=== PATIENT | female | born 1985 | race Caucasian/White ===

== ENCOUNTER → 2022-08-05 11:59 | Outpatient (CLI) | payer OTHER, MEDICAID, SELFPAY ==
[2022-08-05 12:42] LABS: Add Manual Diff / Slide Review NO; Basophils Absolute Auto 0 /uL (0-100); Basophils Percent Auto 0.3 % (0-2); Eosinophils Absolute Auto 100 /uL (0-450); Eosinophils Percent Auto 1.3 % (2-4); Hematocrit 37.8 % (36-46); Hemoglobin 12.5 g/dL (12.0-16.0); Lymphocytes Absolute Auto 2500 /uL (1100-4500); Lymphocytes Percent Auto 30.5 % (25-40); Mean Corpuscular HGB Conc 33.1 % (30-36); Mean Corpuscular Volume 84.4 fL (80-100); Monocytes Absolute Auto 400 /uL (0-900); Monocytes Percent Auto 5.4 % (3-14); Neutrophils Absolute Auto 5000 /uL (1500-7000); Neutrophils Percent Auto 62.5 % (50-75); Platelet Count 300 X10^3/uL (150-400); Red Blood Cell Count 4.47 X10^6/uL (4.0-5.2); Red Cell Distribution Width 13.3 % (11.6-14.8)
[2022-08-05 12:53] LABS: Hemoglobin A1C% w Est Avg Glu 5.2 % (4.0-6.0)
[2022-08-05 13:37] LABS: Alanine Aminotransferase 28 IU/L (<35); Alkaline Phosphatase 97 U/L (38-126); Aspartate Aminotransferase 35 IU/L (14-36); BUN Creatinine Ratio 10.9 (6-22); Bilirubin Total 0.4 mg/dL (0.2-1.3); Blood Urea Nitrogen 10 mg/dL (7-17); Calcium 9.1 mg/dL (8.4-10.2); Carbon Dioxide 25 mmol/L (22-32); Chloride 104 mmol/L (98-107); Cholesterol 181 mg/dL (140-199); Estimated Glomerular Filt Rate > 60 mL/min (>60); Glucose 102 mg/dL (70-100); HDL Cholesterol 36 mg/dL (40-60); HEMOLYSIS < 15 (0-50); LDL Cholesterol Calculated 100 mg/dL (<100); Sodium 139 mmol/L (137-145); Total Protein 7.4 g/dL (6.3-8.2); Triglycerides 225 mg/dL (35-150)
[2022-08-05 14:03] LABS: TSH w/ Reflex to FT4 1.34 uIU/mL (0.47-4.68)
[2022-08-05 15:21] LABS: Vitamin D 25 Hydroxy (D3) 48.2 ng/mL (30.0-100.0)
[2022-08-05 16:42] LABS: Albumin 3.8 g/dL (3.5-5.0); Albumin Globulin Ratio 1.1 (1.0-2.8); Globulin 3.6 g/dL (1.7-4.1)
== END ==
PROVIDERS: PCP Family Medicine; Referring Provider Family Medicine; Visit Provider Family Medicine
DX: E66.01 Morbid (severe) obesity due to excess calories (principal); F31.9 Bipolar disorder, unspecified; R73.01 Impaired fasting glucose
CPT/HCPCS: 36415; 80053; 80061; 82306; 83036; 84443; 85025

== ENCOUNTER → 2022-11-01 14:26 | Outpatient (CLI) | payer OTHER, MEDICAID, SELFPAY ==
--- NOTE | 2022-11-14 14:55 | DIET.OUTPTC ---
Dietary Outpatient Consultation Note Consultation Date: 11/01/[address] visit to start monitoring for desired bariatric surgery. Pts insurance requires [address] visits over a 6 month period with sustained 5% weight loss to move to the next phase. Current weight: 119.7kg Weight to qualify for surgery: 113.7kg Interventions: 1. Discussed requirements to successfully complete this stage of pre-bariatric approval including missing no more than 2 of 12 visits and maintained 5% weight loss. 2. Set up recurring visits with this RD. 3. Discussed bariatric surgery options and long-term benefits/risks. f/u in 2w to start nutrition counselling and monitoring. Electronically Signed by: Marina Aguirre 11/14/22 14:55 Clinical Dietitian [address] [address]
== END ==
PROVIDERS: Absent Provider Family Medicine; Family Provider Family Medicine; PCP Family Medicine; Referring Provider Family Medicine; Visit Provider Family Medicine
DX: E66.01 Morbid (severe) obesity due to excess calories (principal); R73.01 Impaired fasting glucose; Z71.3 Dietary counseling and surveillance
CPT/HCPCS: 97802

== ENCOUNTER → 2022-11-01 15:33 | Outpatient (CLI) | payer OTHER, MEDICAID, SELFPAY | PROVIDERS: Family Provider Family Medicine; PCP Family Medicine; Referring Provider Family Medicine; Visit Provider Family Medicine | DX: Z01.818 Encounter for other preprocedural examination (principal) | CPT/HCPCS: 93005; 93010 ==

== ENCOUNTER → 2022-11-15 16:21 | Outpatient (CLI) | payer OTHER, MEDICAID, SELFPAY ==
--- NOTE | 2022-11-15 16:22 | DIET.OUTPTC ---
Dietary Outpatient Consultation Note Consultation Date: 11/15/2022 37y F attending telehealth visit for pre-bariatric visit number 2 to qualify for bariatric surgery. Pt at home office, RD in hospital office, pt agrees to video visit using [employer] nicanor. Pt is using food journal daily. Pt has met her weight loss goal but is working to maintain her weight loss. Starting Weight: 263# Goal Weight: 247# Current Weight: 239.6# When anxious often feels hungry but gets nauseous. Went on [employer] up sagle for 2 nights but felt anxious because her daughter was admitted to psychiatric treatment at [facility]. On retreat, first day just had protein drink then second day: B: fruit bowl +/- lemon mongolian yogurt L: 1/2 roast beef sandwich with orange D: 1/2 cup chicken james pasta, 1/2 piece garlic bread, salad Sn: 2 cookies Pt had a few great days when looking back at her food log. She characterizes a good day as: B: vanilla Premier Protein with banana L: 3 mini bejarano peppers with low fat cream cheese and everything bagel seasoning Sn: crostini with roasted garlic D: 1/2 lummi wrap on low carb tortilla Interventions: 1. Encouraged pt to stock up on protein drinks and to keep them in her home, car, and places she frequents (family homes). Pt can easily grab cup of ice from gas station to cool down the drink. 2. Encouraged pt to try a variety of brands to find those she enjoys. Suggested Fairlife 30g protein. F/u in 2w to continue education and monitoring for bariatric surgery. Electronically Signed by: Marina Aguirre 11/15/22 16:22 Clinical Dietitian [address] [id number]
== END ==
PROVIDERS: Family Provider Family Medicine; PCP Family Medicine; Referring Provider Family Medicine; Visit Provider Family Medicine
DX: E66.01 Morbid (severe) obesity due to excess calories (principal); R73.01 Impaired fasting glucose; Z71.3 Dietary counseling and surveillance
CPT/HCPCS: 97803

== ENCOUNTER → 2022-11-30 12:00 | Outpatient (CLI) | payer SELFPAY ==
--- NOTE | 2022-11-30 14:50 | DIET.OUTPTC ---
Dietary Outpatient Consultation Note Consultation Date: 11/30/2022 Pt in home, RD in hospital office, pt agrees to telehealth visit using [employer] nicanor. 37y F attending RD visit for help with qualifying for bariatric surgery. Pt attending 3 of 12 visits. Pt noticed 3# weight gain since last visit, has been drinking both Red Bull and SF Red Bull since that time to cope with family stress and deal with headaches. Pt purchased FairLife protein drinks and prefers them to Premier Protein. Is drinking two protein drinks daily and one meal due to ongoing stomach issue. Interventions: 1. Recc pt stop drinking Red Bull or only choose SF option to avoid sugar sweetened beverage. 2. Reinforced importance of protein intake and using protein drinks if pt not feeling like eating meal. F/u in 2w. Electronically Signed by: Marina Aguirre 11/30/22 14:50 Clinical Dietitian [address] [address]
== END ==
LOC: DIET 06-01 12:16
PROVIDERS: Family Provider Family Medicine; PCP Family Medicine; Referring Provider Family Medicine; Visit Provider Family Medicine
DX: E66.01 Morbid (severe) obesity due to excess calories (principal); Z71.3 Dietary counseling and surveillance
CPT/HCPCS: 97803

== ENCOUNTER → 2022-12-13 16:37 | Outpatient (CLI) | payer OTHER, MEDICAID, SELFPAY ==
--- NOTE | 2022-12-13 16:39 | DIET.OUTPTC ---
Dietary Outpatient Consultation Note Consultation Date: 12/13/2022 37y F attending telehealth visit for pre-bariatric visit of 12 to qualify for bariatric surgery. Pt at home office, RD in hospital office, pt agrees to video visit using [employer] nicanor. Pt is using food journal daily. Pt has met her weight loss goal but is working to maintain her weight loss. Pt stopped drinking Red Bull and was able to switch to 3-4 bottles of water. Starting Weight: 263# Goal Weight: 247# Current Weight: 237.8# Pt with ongoing abdominal pain secondary to past abd surgeries (gastroparesis related). Pt notices when she eats protein bars and shakes she doesn't have the pain, but if she eats fast food or to much solid food at one time she does. Discussed having variety of protein bars on hand, always having protein drinks and chewing food well before swallowing it to support digestion. F/u in 2w to continue monitoring and education. Electronically Signed by: Marina Aguirre 12/13/22 16:39 Clinical Dietitian [address] [address]
== END ==
PROVIDERS: Family Provider Family Medicine; PCP Family Medicine; Referring Provider Family Medicine; Visit Provider Family Medicine
DX: E66.01 Morbid (severe) obesity due to excess calories (principal); R73.01 Impaired fasting glucose; Z71.3 Dietary counseling and surveillance
CPT/HCPCS: 97803

== ENCOUNTER → 2022-12-27 16:41 | Outpatient (CLI) | payer OTHER, MEDICAID, SELFPAY ==
--- NOTE | 2022-12-27 17:02 | DIET.OUTPTC ---
Dietary Outpatient Consultation Note Consultation Date: 12/27/2022 Pt at home, RD in hospital office, pt agrees to telehealth visit using [employer] platform. 37y F attending 5th of 12 nutrition visits to qualify for bariatric surgery. 236.4# then now 241.3# after a rough 2 weeks and speaking with different RD who made pt feel like she did not deserve to get bariatric surgery and she would not be able to achieve success. Pt went to hospital yesterday for continued lower GI pain with nausea. Episodically pt will have nausea making it difficult for pt to eat as well as pain and cramping with BMs to the point she cries when having a BM. Pt reports mucous and jelly like BMs during these episodes. Pts maternal uncle was dx with Crohn's disease in his late 30s. [facility] pt reach out to PCP to have this worked up. f/u in 2w for check in. Electronically Signed by: Marina Aguirre 12/27/22 17:02 Clinical Dietitian [address] [address]
--- NOTE | 2023-02-07 16:31 | DIET.PN1 ---
Dietary Progress Note Pt at home, RD in hospital office, pt agrees to telehealth visit using [employer] platform. 37y F attending pre-bariatric visit with RD to qualify for bariatric surgery. Current weight: 228# (-5# in 2w) below goal weight to qualify for surgery. Currently consuming between 90-110g protein and 50-100g CHO daily per food journal. Pt overall feeling good about her progress thus far. f/u in 2w to continue. Electronically Signed by: Marina Aguirre 02/07/23 16:31 Clinical Dietitian [address] [address]
== END ==
PROVIDERS: Family Provider Family Medicine; PCP Family Medicine; Referring Provider Family Medicine; Visit Provider Family Medicine
DX: E66.01 Morbid (severe) obesity due to excess calories (principal); Z71.3 Dietary counseling and surveillance
CPT/HCPCS: 97803

== ENCOUNTER → 2023-02-07 16:29 | Outpatient (CLI) | payer OTHER, MEDICAID, SELFPAY | PROVIDERS: Family Provider Family Medicine; PCP Family Medicine; Referring Provider Family Medicine; Visit Provider Family Medicine | DX: E66.01 Morbid (severe) obesity due to excess calories (principal); R73.01 Impaired fasting glucose | CPT/HCPCS: 97803 ==

== ENCOUNTER → 2023-02-21 16:21 | Outpatient (CLI) | payer OTHER, MEDICAID, SELFPAY ==
--- NOTE | 2023-02-21 16:35 | DIET.PN1 ---
Dietary Progress Note 37y F attending 7th of 12 nutrition visits for pre-bariatric nutrition counselling. Current weight: 228# Pt did not log food last 3 days due to being sick and mostly drinking liquids. Pt had switched from beef jerky to pepperoni sticks and FairLife protein drinks to Premier Protein. She feels this caused her sickness. Resolved with stool softener. Pt having family finish her subbed items and will go back to the original set which she tolerates. Pt somewhat stressed, has 2 weeks left of summer term for school. Is set to take on 15 credits in the fall. f/u in 2w to continue pre-bariatric counselling. Pt consented to receive services via telehealth?: Yes Real-time, synchronous services were performed via: audio & video All participants & their roles: provider, patient Location of provider: hospital Location of pt: home Were services performed via telephone only?: No Time Spent on telephone call only: 15 min Electronically Signed by: Marina Aguirre 02/21/23 16:35 Clinical Dietitian [address] [address]
== END ==
PROVIDERS: Family Provider Family Medicine; PCP Family Medicine; Referring Provider Family Medicine; Visit Provider Family Medicine
DX: E66.01 Morbid (severe) obesity due to excess calories (principal); R73.01 Impaired fasting glucose
CPT/HCPCS: 97803

== ENCOUNTER → 2023-03-08 16:38 | Outpatient (CLI) | payer OTHER, MEDICAID, SELFPAY ==
--- NOTE | 2023-03-08 16:40 | DIET.OUTPTC ---
Dietary Outpatient Consultation Note Consultation Date: 03/08/2023 Telehealth visit transitioned to phone visit due to connection issues. Pt agrees to telehealth visit. Pt at home, RD at hospital in office. 37y F attending f/u for pre-bariatric nutrition visits to qualify for bariatric surgery (elsa-en-y). Pt experiencing considerable stress today. Realized her finals were due tonight not this weekend. Pt had constipation x4d then took gentle laxative and had diarrhea x2d. Pt drinking 1-2 Ensure Max daily along with salmon and beef jerky, sometimes crackers. Pt drinking adequate water. Wt: 220# Goal Wt: 150# Pt maintaining weight loss and continuing to lose weight, remains 70# from goal weight. f/u in 2w. Electronically Signed by: Marina Aguirre 03/08/23 16:40 Clinical Dietitian [address] [address]
== END ==
PROVIDERS: Family Provider Family Medicine; PCP Family Medicine; Referring Provider Family Medicine; Visit Provider Family Medicine
DX: E66.01 Morbid (severe) obesity due to excess calories (principal); R73.01 Impaired fasting glucose; Z71.3 Dietary counseling and surveillance
CPT/HCPCS: 97803

== ENCOUNTER 2023-11-09 10:41 | Emergency (ER) | payer OTHER, SELFPAY ==
[2023-11-09 10:42] VITALS: BP 138/90; PULSE 94; RESP 15; TEMP 36.7; O2SAT 98; BMI 37.3
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
[2023-11-09 11:55] VITALS: BP 122/83; PULSE 85; RESP 14; O2SAT 98
== END 2023-11-09 11:57 | disposition home or self-care (01) ==
PROVIDERS: Emergency Provider Physician Assistant Medical; Family Provider Family Medicine; PCP Family Medicine
DX: S06.0X0A Concussion without loss of consciousness, initial encounter (principal); Y04.2XXA Assault by strike against or bumped into by another person, initial encounter
CPT/HCPCS: 99281; 99282

== ENCOUNTER → 2024-02-14 09:53 | Outpatient (CLI) | payer OTHER, SELFPAY ==
[2024-02-14 10:56] LABS: Lithium 0.4 mmol/L (0.6-1.2)
== END ==
LOC: LAB 09:54
PROVIDERS: Family Provider Family Medicine; PCP Family Medicine; Referring Provider Psychiatry & Neurology Psychiatry; Visit Provider Psychiatry & Neurology Psychiatry
DX: Z79.899 Other long term (current) drug therapy (principal); F31.9 Bipolar disorder, unspecified
CPT/HCPCS: 36415; 80178

== ENCOUNTER 2024-02-16 12:54 | Emergency (ER) | payer OTHER, SELFPAY ==
[2024-02-16] VITALS (16 sets, daily range): BP systolic 121–182; BP diastolic 73–113; PULSE 71–96; RESP 16; TEMP 36.4; O2SAT 96–100; BMI 38.4
--- NOTE | 2024-02-16 14:16 | ED_ITS ---
HPI - Skin/Abscess/Foreign Bdy <Yoana Garima, DO - Last Filed: 02/18/24 11:13> General Chief complaint: Skin/Abscess/Foreign Body Stated complaint: something stuck in esophagus, sent by PCP Time Seen by Provider: 02/16/24 14:02 Source: patient Mode of arrival: Ambulatory Limitations: no limitations History of Present Illness HPI narrative: Patient 38-year-old female history of chronic endometriosis, acid reflux, gastroparesis bipolar presenting today with esophageal spasm. She feels like something is stuck in her throat it has been there for 9 days. She has not sure what it is. But she pushes on her epigastric area she feels burning into her chest. She reports that she is able to swallow her spit but feels like it gets stuck. She has not eating solid foods it quickly comes up she is able to get some liquids down she is drinking ensure but it definitely hurts. She says it has just not in any better she does not like coming to doctors she was at the walk-in clinic initially and sent here for further evaluation Related Data Home Medications Medication Instructions Recorded Confirmed epinephrine 0.3 mg/0.3 mL 0.3 mg IM ONCE 01/10/23 02/16/24 injection, auto-injector cetirizine 10 mg tablet 10 mg PO DAILY 03/09/23 02/16/24 norethindrone 1 mg-ethinyl 1 tab PO DAILY 03/09/23 02/16/24 estradiol 35 mcg tablet (Nortrel) hydrocodone 5 mg-acetaminophen 325 tab PO 02/16/24 02/16/24 mg tablet Previous Rx's Medication Instructions Recorded albuterol sulfate 90 mcg/actuation 1 - 2 inh inhalation Q4-6H PRN 08/17/22 aerosol inhaler shortness of breath or wheezing #8.5 [address] permit #1 ea 01/10/23 omeprazole 40 mg capsule,delayed 40 mg PO DAILY #90 caps 08/11/23 release clonazepam 1 mg tablet 1 mg PO BID #60 tabs 08/15/23 lamotrigine 100 mg tablet 100 mg PO BEDTIME #30 tabs 12/14/23 lisdexamfetamine 60 mg capsule 60 mg PO DAILY #30 caps 02/13/24 lithium carbonate 300 mg capsule 900 mg (3 x 300 mg) PO BEDTIME #60 02/14/24 caps Allergies Allergy/AdvReac Type Severity Reaction Status Date / Time duloxetine Allergy Verified 02/16/24 13:04 aspirin AdvReac Mild Verified 02/16/24 13:04 doxycycline AdvReac Mild Verified 02/16/24 13:04 paroxetine [From Paxil] AdvReac Mild Verified 02/16/24 13:04 Penicillins AdvReac Mild Verified 02/16/24 13:04 Patient History <Yoana Painting DO - Last Filed: 02/18/24 11:13> Medical History Obesity (BMI 30-39.9) Mixed hyperlipidemia Asthma, mild intermittent Endometriosis Allergies PTSD (post-traumatic stress disorder) Anxiety ADHD Gout (~2018) Fibromyalgia (~2011) Chronic back pain (~2018) Carpal tunnel syndrome (~2010) Anemia (~1989) Chlamydia (~2001) Abnormal Pap smear of cervix (~2007) GERD (gastroesophageal reflux disease) (~2001) Gastroparesis (~2021) Morbid obesity Chronic pain IFG (impaired fasting glucose) Bipolar 1 disorder Surgical History Anesthesia Family History Mother Mental health problem Brother Mental health problem Grandfather Diabetes mellitus History of heart disease Grandmother Cancer Social History Smoking Status: Former smoker Smoking Status: Former smoker alcohol intake frequency: holidays/special occasions only Substance Use Type: does not use Exam <Yoana Painting DO - Last Filed: 02/18/24 11:13> Initial Vital Signs Initial Vital Signs: Vital Signs Temperature 97.6 F 02/16/24 12:55 Pulse Rate 83 02/16/24 12:55 Respiratory Rate 16 02/16/24 12:55 Blood Pressure 182/113 H 02/16/24 12:55 Pulse Oximetry 98 02/16/24 12:55 Oxygen Delivery Method Room Air 02/16/24 12:55 GENERAL: Alert 38-year-old female and in no acute distress. HEENT: Head atraumatic,EOMI, pupils reactive, face symmetric, moist mucous membranes CARDIOVASCULAR: Regular rate and rhythm without murmurs, rubs or gallops. RESPIRATORY: Breath sounds equal bilaterally, no wheezes rales or rhonchi. ABDOMEN: Soft, nontender. Normoactive bowel sounds all 4 quadrants. No guarding or rebound. EXTREMITIES: Normal range of motion, no clubbing or edema. Neurovascularly intact NEUROLOGICAL: Alert and oriented x4.Normal gait and speech. SKIN: Warm, dry, no laceration, no petechiae, no rashes or lesions. <Shanta Vu MD - Last Filed: 02/17/24 03:50> Initial Vital Signs Initial Vital Signs: Vital Signs Temperature 97.6 F 02/16/24 12:55 Pulse Rate 83 02/16/24 12:55 Respiratory Rate 16 02/16/24 12:55 Blood Pressure 182/113 H 02/16/24 12:55 Pulse Oximetry 98 02/16/24 12:55 Oxygen Delivery Method Room Air 02/16/24 12:55 Course <Yoana Painting DO - Last Filed: 02/18/24 11:13> Orders Ordered: Discontinued Medications Al Hydrox/Mg Hydrox/Simethicone 20 ml/ Lidocaine HCl 15 ml 0 ml PO NOW ONE Stop: 02/16/24 15:45 Last Admin: 02/16/24 16:02 Dose: 30 ml Documented By: ESTRELLITA Glucagon (Glucagon,Human Recombinant 1 Mg/Ml Vial) 1 mg IV NOW ONE Stop: 02/16/24 14:24 Last Admin: 02/16/24 14:35 Dose: 1 mg Documented By: BERTRAM Sodium Chloride (Normal Saline 0.9%) 1,000 mls @ 1,000 mls/hr IV BOLUS ONE Stop: 02/16/24 15:22 Last Infusion: 02/16/24 16:08 Dose: Infused Documented By: Admin: 02/16/24 14:34 Dose: 1,000 mls/hr Documented By: BERTRAM Lorazepam (Lorazepam 2 Mg/Ml Inj) 0.5 mg IV NOW ONE Stop: 02/16/24 14:40 Last Admin: 02/16/24 14:49 Dose: 0.5 mg Documented By: BERTRAM Morphine Sulfate (Morphine 2 Mg/Ml Inj) 2 mg IV NOW ONE Stop: 02/16/24 16:01 Last Admin: 02/16/24 16:11 Dose: 2 mg Documented By: ESTRELLITA Morphine Sulfate (Morphine 2 Mg/Ml Inj) 2 mg IV NOW ONE Stop: 02/16/24 16:33 Last Admin: 02/16/24 16:52 Dose: 2 mg Documented By: ESTRELLITA Ondansetron HCl (Ondansetron 4 Mg/2 Ml Inj) 4 mg IV NOW ONE Stop: 02/16/24 16:33 Last Admin: 02/16/24 16:52 Dose: 4 mg Documented By: ESTRELLITA Pantoprazole Sodium (Pantoprazole 40 Mg Vial) 40 mg IV NOW ONE Stop: 02/16/24 14:24 Last Admin: 02/16/24 14:35 Dose: 40 mg Documented By: BERTRAM Vital Signs Vital signs: Vital Signs - 8 hr 02/16/24 12:55 02/16/24 13:00 02/16/24 13:01 Temperature 97.6 F Pulse Rate 83 88 Respiratory Rate 16 Blood Pressure 182/113 H Pulse Oximetry 98 96 100 Oxygen Delivery Method Room Air 02/16/24 13:01 02/16/24 13:30 02/16/24 14:00 Temperature Pulse Rate 76 80 Respiratory Rate Blood Pressure 182/113 H Pulse Oximetry 98 99 Oxygen Delivery Method 02/16/24 14:15 02/16/24 14:15 02/16/24 14:30 Temperature Pulse Rate 79 75 Respiratory Rate Blood Pressure 138/78 Pulse Oximetry 100 99 Oxygen Delivery Method 02/16/24 14:30 02/16/24 15:00 02/16/24 15:00 Temperature Pulse Rate 83 Respiratory Rate Blood Pressure 129/73 129/77 Pulse Oximetry 99 Oxygen Delivery Method 02/16/24 15:57 02/16/24 16:00 02/16/24 16:30 Temperature Pulse Rate 86 96 H 77 Respiratory Rate Blood Pressure Pulse Oximetry 100 99 97 Oxygen Delivery Method 02/16/24 16:55 02/16/24 16:55 02/16/24 17:00 Temperature Pulse Rate 77 76 Respiratory Rate Blood Pressure 132/79 Pulse Oximetry 99 99 Oxygen Delivery Method 02/16/24 17:00 Temperature Pulse Rate Respiratory Rate Blood Pressure 134/78 Pulse Oximetry Oxygen Delivery Method <Shanta Vu MD - Last Filed: 02/17/24 03:50> Orders Ordered: Discontinued Medications Al Hydrox/Mg Hydrox/Simethicone 20 ml/ Lidocaine HCl 15 ml 0 ml PO NOW ONE Stop: 02/16/24 15:45 Last Admin: 02/16/24 16:02 Dose: 30 ml Documented By: ESTRELLITA Glucagon (Glucagon,Human Recombinant 1 Mg/Ml Vial) 1 mg IV NOW ONE Stop: 02/16/24 14:24 Last Admin: 02/16/24 14:35 Dose: 1 mg Documented By: BERTRAM Sodium Chloride (Normal Saline 0.9%) 1,000 mls @ 1,000 mls/hr IV BOLUS ONE Stop: 02/16/24 15:22 Last Infusion: 02/16/24 16:08 Dose: Infused Documented By: Admin: 02/16/24 14:34 Dose: 1,000 mls/hr Documented By: BERTRAM Lorazepam (Lorazepam 2 Mg/Ml Inj) 0.5 mg IV NOW ONE Stop: 02/16/24 14:40 Last Admin: 02/16/24 14:49 Dose: 0.5 mg Documented By: BERTRAM Morphine Sulfate (Morphine 2 Mg/Ml Inj) 2 mg IV NOW ONE Stop: 02/16/24 16:01 Last Admin: 02/16/24 16:11 Dose: 2 mg Documented By: ESTRELLITA Morphine Sulfate (Morphine 2 Mg/Ml Inj) 2 mg IV NOW ONE Stop: 02/16/24 16:33 Last Admin: 02/16/24 16:52 Dose: 2 mg Documented By: ESTRELLITA Ondansetron HCl (Ondansetron 4 Mg/2 Ml Inj) 4 mg IV NOW ONE Stop: 02/16/24 16:33 Last Admin: 02/16/24 16:52 Dose: 4 mg Documented By: ESTRELLITA Pantoprazole Sodium (Pantoprazole 40 Mg Vial) 40 mg IV NOW ONE Stop: 02/16/24 14:24 Last Admin: 02/16/24 14:35 Dose: 40 mg Documented By: BERTRAM Vital Signs Vital signs: Vital Signs - 8 hr 02/16/24 12:55 02/16/24 13:00 02/16/24 13:01 Temperature 97.6 F Pulse Rate 83 88 Respiratory Rate 16 Blood Pressure 182/113 H Pulse Oximetry 98 96 100 Oxygen Delivery Method Room Air 02/16/24 13:01 02/16/24 13:30 02/16/24 14:00 Temperature Pulse Rate 76 80 Respiratory Rate Blood Pressure 182/113 H Pulse Oximetry 98 99 Oxygen Delivery Method 02/16/24 14:15 02/16/24 14:15 02/16/24 14:30 Temperature Pulse Rate 79 75 Respiratory Rate Blood Pressure 138/78 Pulse Oximetry 100 99 Oxygen Delivery Method 02/16/24 14:30 02/16/24 15:00 02/16/24 15:00 Temperature Pulse Rate 83 Respiratory Rate Blood Pressure 129/73 129/77 Pulse Oximetry 99 Oxygen Delivery Method 02/16/24 15:57 02/16/24 16:00 02/16/24 16:30 Temperature Pulse Rate 86 96 H 77 Respiratory Rate Blood Pressure Pulse Oximetry 100 99 97 Oxygen Delivery Method 02/16/24 16:55 02/16/24 16:55 02/16/24 17:00 Temperature Pulse Rate 77 76 Respiratory Rate Blood Pressure 132/79 Pulse Oximetry 99 99 Oxygen Delivery Method 02/16/24 17:00 Temperature Pulse Rate Respiratory Rate Blood Pressure 134/78 Pulse Oximetry Oxygen Delivery Method MDM - Skin/Abscess/Foreign Bdy <Yoana Painting, - Last Filed: 02/18/24 11:13> Lab Data 02/16/24 14:13 02/16/24 14:13 Labs: Lab Results 02/16/24 Range/Units 14:13 WBC 9.3 (4.5-11.0) X10^3/uL RBC 4.57 (4.0-5.2) X10^6/uL Hgb 13.3 (12.0-16.0) g/dL Hct 39.4 (36-46) % MCV 86.3 (80-100) fL MCH 29.1 (26-34) PG MCHC 33.8 (30-36) % RDW 13.3 (11.6-14.8) % Plt Count 305 (150-400) X10^3/uL Neut % (Auto) 58.1 (50-75) % Lymph % (Auto) 34.3 (25-40) % [place] % (Auto) 5.3 (3-14) % Eos % (Auto) 1.9 L (2-4) % Baso % (Auto) 0.4 (0-2) % Neut # (Auto) 5400 (5247-5488) /uL Lymph # (Auto) 3200 (3190-6646) /uL [place] # (Auto) 500 (0-900) /uL Eos # (Auto) 200 (0-450) /uL Baso # (Auto) 0 (0-100) /uL Sodium 138 (137-145) mmol/L Potassium 3.5 (3.4-5.1) mmol/L Chloride 108 H (98-107) mmol/L Carbon Dioxide 26 (22-32) mmol/L BUN 8 (7-17) mg/dL Creatinine 0.97 (0.52-1.04) mg/dL Estimated GFR > 60 (>60) mL/min BUN/Creatinine Ratio 8.2 (6-22) Glucose 95 (70-100) mg/dL Calcium 9.2 (8.4-10.2) mg/dL Total Bilirubin 0.5 (0.2-1.3) mg/dL AST 36 (14-36) IU/L ALT 18 (<35) IU/L Alkaline Phosphatase 79 (38-126) U/L Total Creatine Kinase 119 (30-135) U/L Troponin I < 0.012 (0.01-0.034) ng/mL Total Protein 7.0 (6.3-8.2) g/dL Albumin 4.0 (3.5-5.0) g/dL Globulin 3.0 (1.7-4.1) g/dL Albumin/Globulin Ratio 1.3 (1.0-2.8) Lipase 72 (23-300) U/L ECG Data Attestation: I personally reviewed and interpreted this ECG as follows: Interpretation: Normal sinus rhythm rate 78 DC interval 164 QRS [address] changes MDM Narrative Medical decision making narrative: Patient is a 38-year-old female who presents today with what sounds like esophageal spasm. She is able to get liquids down she has not actively vomiting or spitting up her secretions. She has no real abdominal pain. It has been ongoing for the last 9 days. Blood work has been reviewed she has no evidence of dehydration her creatinine is 0.97 her sodium, potassium and other electrolytes within normal limits bilirubin liver enzymes are within normal limits lipase is normal troponin is negative Patient was given Protonix glucagon rama dakota however none of it seemed to help in fact she reports that it was worse, she was then given Ativan and now she says she is back to when she came. 1520 Dr. Banks updated patient's symptoms test results states that he will have his office call her to schedule in urgent endoscopy but does not need to be emergent. Patient is given morphine it seems to help quite a bit though she feels nauseous from it. She also has some twitching which she says is normal she looks a lot comfortable. She says it has not a problem for her to get here for an EGD awaiting for Marisol's office to call may get a call on Monday Patient continues to have pain waiting for hesitant to pick her up ordered CT chest abdomen pelvis <Shanta Vu MD - Last Filed: 02/17/24 03:50> Lab Data Labs: Lab Results 02/16/24 Range/Units 14:13 WBC 9.3 (4.5-11.0) X10^3/uL RBC 4.57 (4.0-5.2) X10^6/uL Hgb 13.3 (12.0-16.0) g/dL Hct 39.4 (36-46) % MCV 86.3 (80-100) fL MCH 29.1 (26-34) PG MCHC 33.8 (30-36) % RDW 13.3 (11.6-14.8) % Plt Count 305 (150-400) X10^3/uL Neut % (Auto) 58.1 (50-75) % Lymph % (Auto) 34.3 (25-40) % [place] % (Auto) 5.3 (3-14) % Eos % (Auto) 1.9 L (2-4) % Baso % (Auto) 0.4 (0-2) % Neut # (Auto) 5400 (1165-3386) /uL Lymph # (Auto) 3200 (4335-4177) /uL [place] # (Auto) 500 (0-900) /uL Eos # (Auto) 200 (0-450) /uL Baso # (Auto) 0 (0-100) /uL Sodium 138 (137-145) mmol/L Potassium 3.5 (3.4-5.1) mmol/L Chloride 108 H (98-107) mmol/L Carbon Dioxide 26 (22-32) mmol/L BUN 8 (7-17) mg/dL Creatinine 0.97 (0.52-1.04) mg/dL Estimated GFR > 60 (>60) mL/min BUN/Creatinine Ratio 8.2 (6-22) Glucose 95 (70-100) mg/dL Calcium 9.2 (8.4-10.2) mg/dL Total Bilirubin 0.5 (0.2-1.3) mg/dL AST 36 (14-36) IU/L ALT 18 (<35) IU/L Alkaline Phosphatase 79 (38-126) U/L Total Creatine Kinase 119 (30-135) U/L Troponin I < 0.012 (0.01-0.034) ng/mL Total Protein 7.0 (6.3-8.2) g/dL Albumin 4.0 (3.5-5.0) g/dL Globulin 3.0 (1.7-4.1) g/dL Albumin/Globulin Ratio 1.3 (1.0-2.8) Lipase 72 (23-300) U/L MDM Narrative Medical decision making narrative: Patient is a 38-year-old female who presents today with what sounds like esophageal spasm. She is able to get liquids down she has not actively vomiting or spitting up her secretions. She has no real abdominal pain. It has been ongoing for the last 9 days. Blood work has been reviewed she has no evidence of dehydration her creatinine is 0.97 her sodium, potassium and other electrolytes within normal limits bilirubin liver enzymes are within normal limits lipase is normal troponin is negative Patient was given Protonix glucagon rama d[place] however none of it seemed to help in fact she reports that it was worse, she was then given Ativan and now she says she is back to when she came. 1520 Dr. Banks updated patient's symptoms test results states that he will have his office call her to schedule in urgent endoscopy but does not need to be emergent. Patient is given morphine it seems to help quite a bit though she feels nauseous from it. She also has some twitching which she says is normal she looks a lot comfortable. She says it has not a problem for her to get here for an EGD awaiting for Marisol's office to call may get a call on Monday Patient continues to have pain waiting for to pick her up ordered CT chest abdomen pelvis Dr Vu -CT abdomen and pelvis with no acute findings. Patient hemodynamically stable. Discharged to care for in stable condition Discharge Plan Departure Patient Disposition: Home Clinical Impression: Esophageal spasm Instructions: DI for Esophageal Stricture Activity Restrictions/Additional Instructions: *You have been diagnosed with esophageal spasm *What to do: At this time you do need an EGD that goes down, Dr. Banks office [facility] will call you to schedule an urgent appointment Please continue to stay hydrated with fluids *Continue to take medications as directed *Follow up with your primary care provider in 2-3 days or call [phone] Dr. Banks *Return to ER if you should have increasing chest pain persistent vomiting or any new, worsening or concerning symptoms Your CT showed a small spot on your liver, likely a cyst. Follow up with your PCP for further testing if needed. Prescriptions: No Action hydrocodone-acetaminophen 5-325 mg tablet PO lisdexamfetamine 60 mg capsule 60 mg PO DAILY Qty: 30 0RF omeprazole 40 mg capsule,delayed release(DR/EC) 40 mg PO DAILY Qty: 90 3RF clonazepam 1 mg tablet 1 mg PO BID Qty: 60 1RF lamotrigine 100 mg tablet 100 mg PO BEDTIME Qty: 30 2RF lithium carbonate 300 mg capsule 900 mg PO BEDTIME Qty: 60 5RF albuterol sulfate 90 mcg/actuation HFA aerosol inhaler 1 - 2 inh inhalation Q4-6H PRN (Reason: shortness of breath or wheezing) Qty: 8.5 11RF epinephrine 0.3 mg/0.3 mL auto-injector 0.3 mg IM ONCE (DME) Disabled parking permit See Rx Instructions .ROUTE .MEDSUPPLY Qty: 1 0RF Rx Instructions: I find this patient to be medically disabled and qualified for disabled parking as indicated, and signed, on the accompanying disabled parking application for individuals. Nortrel () 1-35 mg-mcg tablet 1 tab PO DAILY cetirizine 10 mg tablet 10 mg PO DAILY Referrals: Phil Banks MD [Physician] - Maggie Acevedo DO [Primary Care Provider] - Stand Alone Forms: Patient Portal/API
[2024-02-16] MEDS: SODIUM CHLORIDE 0.9% 1,000 ML 1000 ML IV (14:34)
[2024-02-16] MEDS: GLUCAGON,HUMAN RECOMBINANT 1 MG/ML VIAL IV (14:35)
[2024-02-16] MEDS: PANTOPRAZOLE 40 MG VIAL IV (14:35)
[2024-02-16 14:39] LABS: Add Manual Diff / Slide Review NO; Basophils Absolute Auto 0 /uL (0-100); Basophils Percent Auto 0.4 % (0-2); Eosinophils Absolute Auto 200 /uL (0-450); Eosinophils Percent Auto 1.9 % (2-4); Hematocrit 39.4 % (36-46); Hemoglobin 13.3 g/dL (12.0-16.0); Lymphocytes Absolute Auto 3200 /uL (1100-4500); Lymphocytes Percent Auto 34.3 % (25-40); Mean Corpuscular HGB Conc 33.8 % (30-36); Mean Corpuscular Hemoglobin 29.1 PG (26-34); Mean Corpuscular Volume 86.3 fL (80-100); Monocytes Absolute Auto 500 /uL (0-900); Monocytes Percent Auto 5.3 % (3-14); Neutrophils Absolute Auto 5400 /uL (1500-7000); Neutrophils Percent Auto 58.1 % (50-75); Platelet Count 305 X10^3/uL (150-400); Red Blood Cell Count 4.57 X10^6/uL (4.0-5.2); Red Cell Distribution Width 13.3 % (11.6-14.8); White Blood Cell Count 9.3 X10^3/uL (4.5-11.0)
[2024-02-16 14:47] LABS: Alanine Aminotransferase 18 IU/L (<35); Albumin Globulin Ratio 1.3 (1.0-2.8); Alkaline Phosphatase 79 U/L (38-126); Aspartate Aminotransferase 36 IU/L (14-36); BUN Creatinine Ratio 8.2 (6-22); Bilirubin Total 0.5 mg/dL (0.2-1.3); Blood Urea Nitrogen 8 mg/dL (7-17); Calcium 9.2 mg/dL (8.4-10.2); Carbon Dioxide 26 mmol/L (22-32); Chloride 108 mmol/L (98-107); Estimated Glomerular Filt Rate > 60 mL/min (>60); Glucose 95 mg/dL (70-100); HEMOLYSIS < 15 (0-50); Potassium 3.5 mmol/L (3.4-5.1); Sodium 138 mmol/L (137-145)
[2024-02-16] MEDS: LORazepam 2 MG/ML INJ 0.5 MG IV (14:49)
--- NOTE | 2024-02-16 15:04 | EKG_ITS ---
[address] [address] Test Date: 2024-02-16 Pat Name: Nadia Castillo Department: 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
[2024-02-16 15:19] LABS: Creatine Kinase 119 U/L (30-135); Lipase 72 U/L (23-300)
[2024-02-16 15:31] LABS: Troponin I < 0.012 ng/mL (0.01-0.034)
[2024-02-16] MEDS: MAG HYDROX/ALUMINUM/SIMETH SUS 20 ML, LIDOCAINE VISCOUS 2% 15 ML PO (16:02)
--- NOTE | 2024-02-16 16:07 | EKG_ITS ---
[address] [address] Test Date: 2024-02-16 Pat Name: Nadia Castillo Department: [facility] Room: Gender: Female Manager Car: CHRISTOPHER : 1985 Requested By: Order Number: [id number] Reading MD: Devon Calvo Measurements Intervals [place] Rate: 78 P: 46 RI: 164 QRS: -37 QRSD: 96 T: 21 QT: 418 QTc: 476 Interpretive Statements Normal sinus rhythm Left axis deviation Electronically Signed On 02-17-2024 18:31:50 PDT by Devon Calvo
[2024-02-16] MEDS: MORPHINE 2 MG/ML INJ IV ×2 (16:11→16:52)
[2024-02-16] MEDS: ONDANSETRON 4 MG/2 ML INJ IV (16:52)
--- NOTE | 2024-02-16 17:37 | DI.CT.S_ITS ---
PROCEDURE: CT CHEST ABD PEL W CON INDICATIONS: difficulty swallowing pain TECHNIQUE: After the administration of intravenous contrast, 5 mm thick sections acquired from the lung apices to the symphysis. 5 mm coronal and sagittal reformats were performed, with additional 7 mm MIP reformats through the lungs. For radiation dose reduction, the following was used: automated exposure control, adjustment of mA and/or kV according to patient size. COMPARISON: None. FINDINGS: Image quality: Excellent. CHEST: Lower Neck: No enlarged lymph nodes. Thyroid: Normal CT appearance. Axillae: No enlarged lymph nodes. Chest Wall: Unremarkable. Lungs and Pleura: No pneumothorax or pleural effusions. No consolidation or suspicious nodules. Central and peripheral airways are normal without bronchial wall thickening or bronchiectasis. Heart: Heart size is normal. No pericardial effusion. Thoracic Vessels: The aorta and pulmonary arteries demonstrate normal size. Mediastinum and [place]: No enlarged lymph nodes. Esophagus: No wall thickening. No significant mass effect or extrinsic compression. No hiatal hernia. ABDOMEN: Liver: 2.8 cm ovoid hypodensity laterally in the left hepatic lobe. No other liver lesions. Gallbladder: Surgically absent. Biliary ducts: Mild intrahepatic dilatation, expected post cholecystectomy. Prominent extrahepatic common duct dilatation measuring about 1.6 cm in diameter. No visible calcified choledocholithiasis. The duct appears to taper normally. Pancreas: Normal size and morphology without visible ductal dilatation or inflammation. Spleen: Size is within normal limits. Adrenal Glands: No adrenal nodules. Kidneys and Ureters: Symmetric enhancement. No nephrolithiasis or hydronephrosis. No hydroureter. Stomach and Bowel: Stomach and small bowel loops are normal caliber. Normal appendix. Normal colon. Peritoneum: No abnormal intraperitoneal fluid. No free air. Ventral Wall: No significant ventral hernia. Abdominal Nodes: No retroperitoneal or mesenteric adenopathy by size criteria. Vessels: The abdominal aorta, IVC, and portal vein are of normal caliber. Retro aortic left renal vein. PELVIS: Pelvic Organs: Hysterectomy. Peripherally hypervascular corpus luteum right adnexa with mild right paraovarian fluid. Normal left ovary. Bladder: No bladder wall thickening, accounting for underdistention. Pelvic Nodes: No enlarged lymph nodes. Miscellaneous: No inguinal hernias are seen. Bones: No aggressive osseous abnormality. IMPRESSION: No evidence of esophageal or bowel obstruction. No suspicious wall thickening or extrinsic mass effect on the esophagus. Post cholecystectomy with biliary dilatation above expected. Correlate with LFTs to determine if this could be clinically significant or physiologic. 2.8 cm ovoid left lobe hypodensity. Further characterization with contrast-enhanced liver protocol MRI or CT is recommended on a nonurgent basis. Right ovarian corpus luteum with probable recent rupture. Dictated by: Yuliet Ramirez M.D. on 02/16/2024 at 18:41 Approved by: Yuliet Ramirez M.D. on 02/16/2024 at 18:47
== END 2024-02-16 19:01 | disposition home or self-care (01) ==
PROVIDERS: Emergency Provider Emergency Medicine; Family Provider Family Medicine; PCP Family Medicine
DX: K22.4 Dyskinesia of esophagus (principal)
CPT/HCPCS: 36415; 71260; 74177; 80053; 82550; 83690; 84484; 85025; 93005; 96361; 96374; 96375; 96376; 99284; J1610; J2060; J2270; J2405; J2470; Q9967

== ENCOUNTER 2024-02-20 14:59 | Day surgery (SDC) | payer OTHER, SELFPAY ==
--- NOTE | 2024-02-20 | PATH_ITS ---
[facility] Accession Number: [id number] No. of containers..01 Tissue . 01 Material submitted: . esophagus, E-G Junction - GE JUNCTION . 01 Diagnosis: GASTROESOPHAGEAL JUNCTION, BIOPSY: Squamous mucosa with mild reactive features of reflux esophagitis. No glandular mucosa present for evaluation. Negative for dysplasia or malignancy. [facility] 02/22/2024 1131 Local . 01 Electronically signed: . Mikhail Rosario MD, PhD, Pathologist NPI- [id number] . 01 Gross description: . Received in formalin with two patient identifiers and GE junction, is a single byrd soft tissue fragment 0.4 cm in greatest dimension. Submitted in cassette A1. ([id number]) /[facility] 02/21/2024 0834 Local . 01 Pathologist provided ICD-10: K21.9 . 01 CPT . 131039 Specimen Comment: A courtesy copy of this report has been sent to [phone] Performed at: [address] [address], [place], [place] [id number] MD Charli Hope MD Phone: [phone]
[2024-02-20 15:25] VITALS: BP 131/84; PULSE 78; RESP 16; TEMP 36.7; O2SAT 99
[2024-02-20] MEDS: LACTATED RINGERS 1,000 ML 42 ML IV (15:40)
--- NOTE | 2024-02-20 15:43 | P.HP_ITS ---
History of Present Illness History of Present Illness Date Patient Seen: 02/20/24 Time Patient Seen: 15:44 Chief complaint: EGD Narrative: 38-year-old woman here for diagnostic upper endoscopy. History of reflux on 40 mg of omeprazole twice daily. Recently describes sensation that food is becoming stuck in her lower esophagus. [facility] Medical History Obesity (BMI 30-39.9) Mixed hyperlipidemia Asthma, mild intermittent Endometriosis Allergies PTSD (post-traumatic stress disorder) Anxiety ADHD Gout (~2018) Fibromyalgia (~2011) Chronic back pain (~2018) Carpal tunnel syndrome (~2010) Anemia (~1989) Chlamydia (~2001) Abnormal Pap smear of cervix (~2007) GERD (gastroesophageal reflux disease) (~2001) Gastroparesis (~2021) Morbid obesity Chronic pain IFG (impaired fasting glucose) Bipolar 1 disorder Surgical History Anesthesia Family History Mother Mental health problem Brother Mental health problem Grandfather Diabetes mellitus History of heart disease Grandmother Cancer Social History Smoking Status: Former smoker alcohol intake: never Meds Home Medications and Allergies Home Medications Medication Instructions Recorded Confirmed Type albuterol sulfate 90 mcg/actuation 1 - 2 inh inhalation Q4-6H PRN 08/17/22 02/20/24 Rx aerosol inhaler shortness of breath or wheezing #8.[address] permit #1 ea 01/10/23 02/16/24 Rx epinephrine 0.3 mg/0.3 mL 0.3 mg IM ONCE 01/10/23 02/20/24 History injection, auto-injector cetirizine 10 mg tablet (Aller-Doug) 10 mg PO DAILY 03/09/23 02/20/24 History omeprazole 40 mg capsule,delayed 40 mg PO DAILY #90 caps 08/11/23 02/20/24 Rx release clonazepam 1 mg tablet 1 mg PO BID #60 tabs 08/15/23 02/20/24 Rx lamotrigine 100 mg tablet 100 mg PO BEDTIME #30 tabs 12/14/23 02/20/24 Rx lithium carbonate 300 mg capsule 900 mg (3 x 300 mg) PO BEDTIME #60 02/14/24 02/20/24 Rx caps hydrocodone 5 mg-acetaminophen 325 1 tab PO PRN PRN Pain, Moderate 02/16/24 02/20/24 History mg tablet lisdexamfetamine 60 mg capsule 60 mg PO DAILY 02/20/24 02/20/24 History (Vyvanse) Allergies Allergy/AdvReac Type Severity Reaction Status Date / Time adhesive Allergy Mild Hives Verified 02/20/24 12:20 duloxetine Allergy Verified 02/20/24 15:19 aspirin AdvReac Mild Hives Verified 02/20/24 15:19 doxycycline AdvReac Mild Verified 02/20/24 15:19 paroxetine [From Paxil] AdvReac Mild Hives Verified 02/20/24 15:19 Penicillins AdvReac Mild Verified 02/20/24 15:19 Exam Vital Signs (past 8 hours): - 02/20/24 15:25 Temperature 98.0 F Pulse Rate 78 Respiratory Rate 16 Blood Pressure 131/84 Pulse Oximetry 99 Oxygen Delivery Method Room Air Oxygen Delivery Method Room Air Narrative Exam Narrative: General adult woman alert oriented no acute distress Chest nonlabored respiration Extremities warm well perfused Assessment & Plan Assessment & Plan narrative: Upper endoscopy indicated for esophageal dysphagia. Technical details were discussed. Risks, benefits, alternatives explained. Risks including but not limited to myocardial infarction, aspiration, bleeding, pain, missed lesion, incomplete examination, need for further radiographic studies, intestinal injury, and need for major abdominal surgery were discussed. All questions were answered to their satisfaction, and they are in agreement with this plan. Time-Based Coding :: [TOTAL MINUTES] spent with patient and on the chart (including review of chart, obtaining history, exam, reviewing outside data, placing orders, documenting exam and treatment plan, and counseling patient) on [DATE].
--- NOTE | 2024-02-20 15:43 | SUR.OPER ---
EGD SCOPE 047
[2024-02-20] MEDS: ONDANSETRON 4 MG/2 ML INJ IV (15:45)
--- NOTE | 2024-02-20 16:09 | PM.OP.EGD ---
Operative Date/Time/Diagnoses Date of procedure: 02/20/24 Time of procedure: 16:10 Pre-op diagnosis: Esophageal dysphagia Procedure & Clinicians Study performed: Diagnostic esophagogastroduodenoscopy Same procedure as scheduled: Yes Indications: Esophageal dysphagia Surgeon: Phil Banks Procedure Notes Procedure in detail: The history and physical was performed/updated and the patient is ASA class is 3. The procedure was discussed in detail with the patient. Potential risks complications including infection, bleeding, missed diagnosis, perforation, need for surgery, and were explained. Their questions were answered and informed consent was obtained. Patient placed in left lateral decubitus position. Time out was performed. Procedural sedation was administered by Anesthesia. A bite block was placed. the scope was inserted into the mouth and advanced through the esophagus and into the stomach. The pylorus was intubated and the duodenum was examined to the 2nd portion. The scope was then withdrawn into the stomach and was retroflexed. The stomach was decompressed and scope was withdrawn slowly through the esophagus. FINDINGS Unremarkable appearing upper endoscopy. No esophageal stricture or significant hiatal hernia No esophagitis Biopsy of GE junction performed with forceps The patient tolerated the procedure well and will be discharged when they meet criteria. Specimen(s): other (GE junction) Impression: Normal upper endoscopy Post-procedure Plan for aftercare: Continue omeprazole as written Disposition: same day surgery
[2024-02-20 16:15] VITALS: BP 118/77; PULSE 83; RESP 19; TEMP 36.6; O2SAT 98
[2024-02-20 16:19] VITALS: BP 128/76; PULSE 78; RESP 14; TEMP 36.5; O2SAT 98
[2024-02-20 16:24] VITALS: BP 115/65; PULSE 71; RESP 15; TEMP 36.6; O2SAT 99
== END 2024-02-20 16:29 | disposition home or self-care (01) ==
PROVIDERS: Family Provider Family Medicine; PCP Family Medicine; Referring Provider Surgery; Visit Provider Surgery
PROC: 0DJ08ZZ Inspection of Upper Intestinal Tract, Via Natural or Artificial Opening Endoscopic (ICD-10-PCS; CPT 43235; principal; 2024-02-20 15:45)
DX: R13.10 Dysphagia, unspecified (principal)
CPT/HCPCS: 43235; J2405; J2704

== ENCOUNTER → 2024-02-26 07:53 | Outpatient (CLI) | payer OTHER, SELFPAY ==
[2024-02-26 09:19] LABS: Lithium 0.9 mmol/L (0.6-1.2)
== END ==
PROVIDERS: Family Provider Family Medicine; PCP Family Medicine; Referring Provider Psychiatry & Neurology Psychiatry; Visit Provider Psychiatry & Neurology Psychiatry
DX: F31.9 Bipolar disorder, unspecified (principal); Z79.899 Other long term (current) drug therapy
CPT/HCPCS: 36415; 80178

== ENCOUNTER 2024-05-30 19:47 | Emergency (ER) | payer OTHER, SELFPAY ==
[2024-05-30 19:56] VITALS: BP 137/99; PULSE 105; RESP 20; TEMP 36.8; O2SAT 100; BMI 36.4
[2024-05-30 20:49] LABS: Strep Grp A by PCR Rapid Negative (Negative)
[2024-05-30 21:49] VITALS: BP 133/89; PULSE 101; RESP 22; O2SAT 99
[2024-05-30 22:00] VITALS: BP 121/79; PULSE 92; RESP 34; O2SAT 99
--- NOTE | 2024-05-30 22:17 | ED_ITS ---
HPI - Skin/Abscess/Foreign Bdy General Chief complaint: Skin/Abscess/Foreign Body Stated complaint: sore and stiff neck, ear px, COLON, body px Time Seen by Provider: 05/30/24 21:40 Source: patient Mode of arrival: Wheelchair Limitations: no limitations History of Present Illness HPI narrative: 38-year-old female presents for sore throat, right ear pain, right-sided neck pain, body aches. Patient has been told that she was not able to take anti- inflammatories, but has been taking Tylenol and even took a home hydrocodone for symptoms without significant improvement. One month ago had shingles on the left side of her neck, she has since finished treatment. Related Data Home Medications Medication Instructions Recorded Confirmed epinephrine 0.3 mg/0.3 mL 0.3 mg IM ONCE 01/10/23 03/05/24 injection, auto-injector hydrocodone 5 mg-acetaminophen 325 1 tab PO PRN PRN Pain, Moderate 02/16/24 03/05/24 mg tablet dicyclomine 20 mg tablet 20 mg PO 4XD 03/05/24 03/05/24 Previous Rx's Medication Instructions Recorded albuterol sulfate 90 mcg/actuation 1 - 2 inh inhalation Q4-6H PRN 08/17/22 aerosol inhaler shortness of breath or wheezing #8.5 [address]abled [address] permit #1 ea 01/10/23 omeprazole 40 mg capsule,delayed 40 mg PO DAILY #90 caps 08/11/23 release clonazepam 1 mg tablet 1 mg PO BID #60 tabs 08/15/23 lithium carbonate 300 mg capsule 900 mg (3 x 300 mg) PO BEDTIME #60 02/14/24 caps cetirizine 10 mg tablet (Aller-Doug) 10 mg PO DAILY #90 tabs 03/05/24 cyclobenzaprine 5 mg tablet 5 mg PO Q8H PRN pain, TMJ #30 tabs 03/05/24 fluticasone propionate 50 2 spray intranasal DAILY PRN nasal 03/05/24 mcg/actuation nasal congestion #16 grams spray,suspension (Flonase Allergy Relief) lamotrigine 100 mg tablet 100 mg PO BEDTIME #30 tabs 03/28/24 semaglutide 0.25 mg or 0.5 mg (2 0.5 mg (0.736 mL) SUBCUT QWEEK #5 04/16/24 mg/3 mL) subcutaneous pen injector mL (Ozempic) lisdexamfetamine 60 mg capsule 60 mg PO DAILY #30 caps 05/07/24 (Vyvanse) promethazine 25 mg tablet 25 mg PO Q6H PRN nausea and 05/07/24 vomiting 30 days #30 tabs Allergies Allergy/AdvReac Type Severity Reaction Status Date / Time adhesive Allergy Mild Hives Verified 03/05/24 13:10 duloxetine Allergy Verified 03/05/24 13:10 aspirin AdvReac Mild Hives Verified 03/05/24 13:10 doxycycline AdvReac Mild Verified 03/05/24 13:10 paroxetine [From Paxil] AdvReac Mild Hives Verified 03/05/24 13:10 Penicillins AdvReac Mild Verified 03/05/24 13:10 Patient History Medical History Obesity (BMI 30-39.9) Mixed hyperlipidemia Asthma, mild intermittent Endometriosis Allergies PTSD (post-traumatic stress disorder) Anxiety ADHD Gout (~2018) Fibromyalgia (~2011) Chronic back pain (~2018) Carpal tunnel syndrome (~2010) Anemia (~1989) Chlamydia (~2001) Abnormal Pap smear of cervix (~2007) GERD (gastroesophageal reflux disease) (~2001) Gastroparesis (~2021) Morbid obesity Chronic pain IFG (impaired fasting glucose) Bipolar 1 disorder Surgical History Anesthesia Family History Mother Mental health problem Brother Mental health problem Grandfather Diabetes mellitus History of heart disease Grandmother Cancer Social History Smoking Status: Former smoker alcohol intake: never Smoking Status: Former smoker alcohol intake frequency: holidays/special occasions only Substance Use Type: does not use Exam Initial Vital Signs Initial Vital Signs: Vital Signs Temperature 98.3 F 05/30/24 19:56 Pulse Rate 105 H 05/30/24 19:56 Respiratory Rate 20 05/30/24 19:56 Blood Pressure 137/99 H 05/30/24 19:56 Pulse Oximetry 100 05/30/24 19:56 Oxygen Delivery Method Room Air 05/30/24 19:56 Const: Awake, alert, nontoxic appearing HEENT: Left TM normal, right TM with scant clear fluid behind drum, mild pharyngeal erythema without edema or exudates Cardiac: regular rate, regular rhythm RESP: unlabored, clear bilaterally, no wheezing Skin: Warm, Dry, intact, no rashes Neuro: AO x3, CN II-XII grossly intact, moves all extremities Course Orders Ordered: Discontinued Medications Acetaminophen (Acetaminophen 325 Mg Tablet) 975 mg PO NOW ONE Stop: 05/30/24 22:31 Last Admin: 05/30/24 23:07 Dose: 975 mg Documented By: CAMELIA Dexamethasone (Dexamethasone 10 Mg/Ml Vial) 10 mg PO NOW ONE Stop: 05/30/24 22:18 Last Admin: 05/30/24 22:27 Dose: 10 mg Documented By: CAMELIA Ketorolac Tromethamine (Ketorolac 30 Mg/Ml Vial) 30 mg IM NOW ONE Stop: 05/30/24 22:31 Last Admin: 05/30/24 23:07 Dose: 30 mg Documented By: CAMELIA Lidocaine HCl (Lidocaine Viscous 2% 15 Ml Solution) 15 ml PO NOW ONE Stop: 05/30/24 22:18 Last Admin: 05/30/24 22:27 Dose: 15 ml Documented By: CAMELIA Ondansetron HCl (Ondansetron 4 Mg Odt) 4 mg SL NOW ONE Stop: 05/30/24 22:57 Last Admin: 05/30/24 22:59 Dose: 4 mg Documented By: CAMELIA Vital Signs Vital signs: Vital Signs - 8 hr 05/30/24 19:56 05/30/24 21:49 05/30/24 21:49 Temperature 98.3 F Pulse Rate 105 H 101 H Respiratory Rate 20 22 Blood Pressure 137/99 H 133/89 Pulse Oximetry 100 99 Oxygen Delivery Method Room Air Room Air MDM - Skin/Abscess/Foreign Bdy Lab Data Labs: Lab Results 05/30/24 05/30/24 Range/Units 20:00 22:30 SARS-CoV-2 (PCR) Negative (Negative) Influenza A (RT-PCR) Flu a negative (NEGATIVE) Influenza B (RT-PCR) Flu b negative (NEGATIVE) RSV (PCR) Negative (Negative) Group A Strep (PCR) Negative (Negative) MDM Narrative Medical decision making narrative: Symptoms likley consistent with viral syndrome. No nuchal rigidity, VSS. Strep, flu, covid, rsv negative. Given medications for symptomatic control. Supportive measures counseled for home. Discharge Plan Departure Patient Disposition: Home Clinical Impression: Acute viral syndrome Instructions: DI for Viral Syndrome Activity Restrictions/Additional Instructions: Your strep, flu, COVID, and RSV swabs were negative. This is still likely a viral illness. Take Tylenol with your pain medication for symptoms. Make sure you stay hydrated by drinking plenty of fluids. You may also take [id number] medicines such as Mucinex to help keep your ear from feeling clogged and painful. Follow up with your primary care doctor. Prescriptions: No Action hydrocodone-acetaminophen 5-325 mg tablet 1 tab PO PRN PRN (Reason: Pain, Moderate) lisdexamfetamine [Vyvanse] 60 mg capsule 60 mg PO DAILY Qty: 30 0RF omeprazole 40 mg capsule,delayed release(DR/EC) 40 mg PO DAILY Qty: 90 3RF clonazepam 1 mg tablet 1 mg PO BID Qty: 60 1RF lithium carbonate 300 mg capsule 900 mg PO BEDTIME Qty: 60 5RF lamotrigine 100 mg tablet 100 mg PO BEDTIME Qty: 30 2RF Ozempic 0.25 mg or 0.5 mg (2 mg/3 mL) pen injector 0.5 mg SUBCUT QWEEK Qty: 5 11RF Rx Instructions: inject 0.5 mg SQ weekly OK to compound promethazine 25 mg tablet 25 mg PO Q6H PRN (Reason: nausea and vomiting) 30 Days Qty: 30 0RF dicyclomine 20 mg tablet 20 mg PO 4XD cyclobenzaprine 5 mg tablet 5 mg PO Q8H PRN (Reason: pain, TMJ) Qty: 30 1RF cetirizine [Aller-Doug] 10 mg tablet 10 mg PO DAILY Qty: 90 3RF fluticasone propionate [Flonase Allergy Relief] 50 mcg/actuation spray,suspension 2 spray intranasal DAILY PRN (Reason: nasal congestion) Qty: 16 11RF Rx Instructions: administer into each nostril albuterol sulfate 90 mcg/actuation HFA aerosol inhaler 1 - 2 inh inhalation Q4-6H PRN (Reason: shortness of breath or wheezing) Qty: 8.5 11RF epinephrine 0.3 mg/0.3 mL auto-injector 0.3 mg IM ONCE (DME) Disabled parking permit See Rx Instructions .ROUTE .MEDSULY Qty: 1 0RF Rx Instructions: I find this patient to be medically disabled and qualified for disabled parking as indicated, and signed, on the accompanying disabled parking application for individuals. Referrals: Maggie Acevedo DO [Primary Care Provider] - Stand Alone Forms: Patient Portal/API/Survey
[2024-05-30] MEDS: LIDOCAINE VISCOUS 2% 15 ML SOLUTION PO (22:27)
[2024-05-30] MEDS: DEXAMETHASONE 10 MG/ML VIAL PO (22:27)
[2024-05-30 22:30] VITALS: BP 128/81; PULSE 89; RESP 27; O2SAT 98
--- NOTE | 2024-05-30 22:41 | PC.NURSE ---
Pt ambulatory to restroom without difficulty or assistance.
[2024-05-30] MEDS: ONDANSETRON 4 MG ODT SL (22:59)
[2024-05-30] MEDS: KETOROLAC 30 MG/ML VIAL IM (23:07)
[2024-05-30] MEDS: ACETAMINOPHEN 325 MG TABLET 975 MG PO (23:07)
[2024-05-30 23:20] LABS: Influenza A - CEPHEID Flu A NEGATIVE (NEGATIVE); Influenza B - CEPHEID Flu B NEGATIVE (NEGATIVE); Respiratory Syncytial Virus Negative (Negative)
[2024-05-30 23:26] LABS: COVID-19 CEPHEID 4-PLEX PCR Negative (Negative)
[2024-05-30 23:58] VITALS: BP 147/86; PULSE 74; RESP 20; O2SAT 98
== END 2024-05-30 23:58 | disposition home or self-care (01) ==
PROVIDERS: Emergency Provider Emergency Medicine; Family Provider Family Medicine; PCP Family Medicine
DX: B34.9 Viral infection, unspecified (principal); H92.01 Otalgia, right ear; M54.2 Cervicalgia; Z11.52 Encounter for screening for COVID-19
CPT/HCPCS: 0241U; 87651; 96372; 99283; J1100; J1885

== ENCOUNTER → 2024-10-11 07:59 | Outpatient (CLI) | payer OTHER, SELFPAY ==
[2024-10-11 08:48] LABS: Add Manual Diff / Slide Review NO; Basophils Absolute Auto 0 /uL (0-100); Basophils Percent Auto 0.2 % (0-2); Eosinophils Absolute Auto 100 /uL (0-450); Hematocrit 40.5 % (36-46); Hemoglobin 13.3 g/dL (12.0-16.0); Lymphocytes Absolute Auto 2700 /uL (1100-4500); Lymphocytes Percent Auto 23.6 % (25-40); Mean Corpuscular HGB Conc 32.9 % (30-36); Mean Corpuscular Hemoglobin 28.5 PG (26-34); Mean Corpuscular Volume 86.4 fL (80-100); Monocytes Absolute Auto 400 /uL (0-900); Monocytes Percent Auto 3.9 % (3-14); Neutrophils Absolute Auto 8100 /uL (1500-7000); Neutrophils Percent Auto 71.3 % (50-75); Platelet Count 338 X10^3/uL (150-400); Red Blood Cell Count 4.68 X10^6/uL (4.0-5.2); Red Cell Distribution Width 13.9 % (11.6-14.8); White Blood Cell Count 11.3 X10^3/uL (4.5-11.0)
[2024-10-11 09:38] LABS: TSH w/ Reflex to FT4 5.07 uIU/mL (0.47-4.68)
[2024-10-11 10:32] LABS: Alanine Aminotransferase 23 IU/L (<35); Albumin 3.9 g/dL (3.5-5.0); Albumin Globulin Ratio 1.4 (1.0-2.8); Alkaline Phosphatase 64 U/L (38-126); Aspartate Aminotransferase 24 IU/L (14-36); BUN Creatinine Ratio 10.8 (6-22); Bilirubin Total 0.3 mg/dL (0.2-1.3); Blood Urea Nitrogen 11 mg/dL (7-17); Calcium 9.8 mg/dL (8.4-10.2); Carbon Dioxide 19 mmol/L (22-32); Chloride 106 mmol/L (98-107); Estimated Glomerular Filt Rate > 60 mL/min (>60); Globulin 2.8 g/dL (1.7-4.1); Glucose 99 mg/dL (70-100); HEMOLYSIS < 15 (0-50); Potassium 3.8 mmol/L (3.4-5.1); Sodium 138 mmol/L (137-145); Total Protein 6.7 g/dL (6.3-8.2)
[2024-10-11 12:03] LABS: Free T4, Direct Thyroxine 0.86 ng/dL (0.78-2.19)
[2024-10-14 14:36] LABS: Lamotrigine Lamictal 3.9 ug/mL (2.0-20.0)
== END ==
PROVIDERS: Family Provider Family Medicine; PCP Family Medicine; Referring Provider Psychiatry & Neurology Psychiatry; Visit Provider Psychiatry & Neurology Psychiatry
DX: F31.9 Bipolar disorder, unspecified (principal); Z79.899 Other long term (current) drug therapy
CPT/HCPCS: 36415; 80053; 80175; 80178; 84439; 84443; 85025